=== PATIENT | female | born 1955 ===

== ENCOUNTER 2016-09-15 00:21 | Inpatient (IN) | payer OTHER ==
[2016-09-15] MEDS ORDERED: Sodium Chloride 0.9% 1,000 ML IV STA (01:16)
--- NOTE | 2016-09-15 01:19 | ED PDOC ---
HPI: Chest Pain Time Seen by Provider: 09/15/16 00:39 Chief Complaint (Nursing): Chest Pain Chief Complaint (Provider): chest pain History Per: Patient History/Exam Limitations: no limitations Quality: Sharp, Burning Associated Symptoms: Nausea Exacerbating Factors: Movement Alleviating Factors: Rest Additional Complaint(s): 61yo F in Ed for casey of chest pain with hx of HTN, DM, and hyperthyroidism, complaining of acute epigastric pain radiating to back with associated SOB, nausea and mild left sided CP. denies hcx of similar. states she had ofee and ate, afterwich she noted heyr symptoms. states that it began with elevated BP. Past Medical History Reviewed: Historical Data, Nursing Documentation, Vital Signs Vital Signs: Last Vital Signs Temp 98.3 F 09/15/16 00:34 Pulse 84 09/15/16 00:34 Resp 16 09/15/16 00:34 BP 155/106 H 09/15/16 00:34 Pulse Ox 100 09/15/16 01:22 - Medical History PMH: Diabetes, HTN - Family History Family History: States: No Known Family Hx - Home Medications Home Medications: Ambulatory Orders Medication Instructions Recorded Levothyroxine [Synthroid] 75 mcg PO DAILY 09/15/16 Metformin HCl [Fortamet] 500 mg PO DAILY 09/15/16 Telmisartan [Micardis] 40 mg PO DAILY 09/15/16 - Allergies Allergies/Adverse Reactions: Allergies Allergy/AdvReac Type Severity Reaction Status Date / Time No Known Allergies Allergy Verified 09/15/16 00:43 JAROCHO Risk Score for UA/NSTEMI - JAROCHO Risk Score Age > 64: NO 3 or more CAD Risk Factors: YES Known CAD (Stenosis greater than 50%): NO Aspirin use in past 7 days: NO Severe Angina: NO EKG ST changes greater than 0.5mm: YES JAROCHO Score: 2 Risk %: 8% Curb-65 Severity Score - CURB-65 Severity Score Confusion: No Bun >19mg/dl (>7mmol/L): No Respiratory Rate greater than/equal to 30: No Systolic BP <90 or Diastolic BP less than/equal 60mmHg: No Age >64: No Curb-65 Score: 0 Percentage 30-day mortality: 0.6% Wells Criteria for PE - Wells Criteria for Pulmonary Embolism Clinical Signs and Symptoms of DVT: No P.E is #1 Diagnosis, or Equally Likely: No Heart Rate >100: No Immobilization at least 3 days;Surgery previous 4 weeks: No Previous, objectively diagnosed PE or DVT: No Hemoptysis: No Malignancy w/treatment within 6 months, or palliative: No Total Score: 0 Review of Systems ROS Statement: Except As Marked, All Systems Reviewed And Found Negative Cardiovascular: Positive for: Chest Pain Gastrointestinal: Positive for: Nausea, Vomiting, Abdominal Pain Physical Exam - Reviewed Nursing Documentation Reviewed: Yes Vital Signs Reviewed: Yes - Physical Exam Appears: Positive for: Non-toxic, No Acute Distress, Uncomfortable Head Exam: Positive for: ATRAUMATIC, NORMAL INSPECTION, NORMOCEPHALIC Skin: Positive for: Normal Color, Warm, DRY ENT: Positive for: Normal ENT Inspection Neck: Positive for: Normal, Painless ROM Cardiovascular/Chest: Positive for: Regular Rate, Rhythm Respiratory: Positive for: CNT, Normal Breath Sounds Gastrointestinal/Abdominal: Positive for: Bowel Sounds, Soft, Tenderness ( epigastric pain and LUQ pain) Back: Positive for: Normal Inspection Extremity: Positive for: Normal ROM Neurologic/Psych: Positive for: Alert, Oriented - Laboratory Results Result Diagrams: 09/15/16 01:33 09/15/16 01:33 - ECG ECG Rhythm: Positive for: Normal QRS, Sinus Rhythm, ST/T Changes O2 Sat by Pulse Oximetry: 100 - Progress ED Course And Treament: Pt will get chest pain work up via EKG, trop/PT/PTT/cbc/CMP Medical Decision Making Medical Decision Making: Pt with unremarkable labs however, due to HTN in ED, Chest pain, epaigstric pain in a 61yo F with hx of HTN, DM and hyperthyroidism will need further testing and admitted for chest pain observation. Disposition - Clinical Impression Clinical Impression: Chest pain, Hypertension - Patient ED Disposition Is Patient to be Admitted: Yes - Disposition Disposition Time: 02:17 Condition: FAIR - Pt Status Changed To: Hospital Disposition Of: Observation - POA Present On Arrival: None
[2016-09-15 01:37] LABS: BASO # 0.1 K/uL (0.0-0.2); BASO % 0.8 % (0.0-2.0); EOS # 0.1 K/uL (0.0-0.7); EOS % 1.4 % (0.0-4.0); HEMATOCRIT 39.2 % (34.0-47.0); LYMPH # 3.6 K/uL (1.0-4.3); MEAN CELL VOLUME 91.1 fl (81.0-99.0); MEAN CORPUSCULAR HEMOGLOBIN 30.7 pg (27.0-31.0); MEAN CORPUSCULAR HGB CONC 33.7 g/dL (33.0-37.0); MEAN PLATELET VOLUME 7.5 fl (7.2-11.7); MONO # 0.8 K/uL (0.0-0.8); MONO % 8.4 % (0.0-10.0); NEUT # 4.8 K/uL (1.8-7.0); NEUT % 51.4 % (50.0-75.0); RED CELL DISTRIBUTION WIDTH 13.1 % (11.5-14.5); WHITE BLOOD COUNT 9.4 K/uL (4.8-10.8)
[2016-09-15 01:45] LABS: ALB/GLOB RATIO 1.1 (1.0-2.1); ALKALINE PHOSPHATASE 101 U/L (38-126); ALT/SGPT 50 U/L (9-52); AST/SGOT 31 U/L (14-36); BILIRUBIN,TOTAL 0.3 mg/dl (0.2-1.3); BLOOD UREA NITROGEN 16 mg/dl (7-17); CALCIUM 9.7 mg/dL (8.4-10.2); CARBON DIOXIDE 24 mmol/L (22-30); CHLORIDE 101 mmol/L (98-107); GFR AFRICAN-AMERICAN > 60; GLUCOSE,RANDOM 107 mg/dL (65-105); LIPASE 226 U/L (23-300); MAGNESIUM 1.7 MG/DL (1.6-2.3); POTASSIUM 4.1 MMOL/L (3.6-5.0); SODIUM 137 mmol/l (132-148); TOTAL PROTEIN 8.5 G/DL (6.3-8.2)
[2016-09-15 01:56] LABS: PARTIAL THROMBOPLASTIN TIME 30.7 Seconds (25.6-37.1)
[2016-09-15 02:02] LABS: RBC URINE 3 /hpf (0-3); URINE BILIRUBIN NEGATIVE (NEGATIVE); URINE BLOOD MODERATE (NEGATIVE); URINE COLOR COLORLESS (YELLOW); URINE GLUCOSE (UA) NEG (Normal); URINE KETONE NEGATIVE (NEGATIVE); URINE LEUKOCYTE ESTERASE NEG Leu/uL (Negative); URINE PROTEIN NEGATIVE (NEGATIVE); URINE UROBILINOGEN 0.2-1.0 mg/dL (0.2-1.0); WBC URINE < 1 /hpf (0-5)
--- NOTE | 2016-09-15 02:21 | CP.PCM.HP ---
History of Present Illness - History of Present Illness History of Present Illness: PCP: None Chief Complaint: Paresthesias/Chest Pain HPI: 61 years German speaking female with hx of DM II, HTN, Hypothyroidism comes to the ED referring sensation of crawling of ants on both lower extremities and the whole body. This was associated with nausea SOB and an epigastric pain radiating to the left chest, back and LLQ. Her blood pressure was found to be elevated at her home and because of the this she came to the ED. PMH: HTN; DM II; Hypothyroidism ;Nephrolithiasis; Irritable colon; Fatty liver PSH: left nephrectomy; 3 Cesarian section SH; No cigarette smoking; No Alcohol; no illegal drug use; Live with daughter FH: No hereditory disease Allergies: NKDA Present on Admission - Present on Admission Any Indicators Present on Admission: No History of DVT/PE: No History of Uncontrolled Diabetes: No Urinary Catheter: No Decubitus Ulcer Present: No Review of Systems - Constitutional Constitutional: absent: Anorexia, Chills, Fatigue, Fever, Headache - EENT Eyes: absent: Diplopia, Floaters, Requires Corrective Lenses, Sees Flashes Ears: absent: Decreased Hearing, Ear Discharge, Ear Pain, Tinnitus Nose/Mouth/Throat: absent: Epistaxis, Nasal Congestion, Sinus Pain, Sinus Pressure - Cardiovascular Cardiovascular: Dyspnea. absent: Chest Pain, Edema, Orthopnea, Palpitations - Respiratory Respiratory: Dyspnea. absent: Cough, Wheezing, Stridor, Chest Congestion - Gastrointestinal Gastrointestinal: Nausea. absent: Constipation, Diarrhea, Vomiting - Genitourinary Genitourinary: absent: Dysuria, Flank Pain, Hematuria, Urinary Frequency - Musculoskeletal Musculoskeletal: absent: Myalgias - Integumentary Integumentary: absent: Pruritus, Rash, Skin Ulcer, Sores, Striae, Swelling - Neurological Neurological: Paresthesias. absent: Confusion, Numbness, Headaches, Weakness - Psychiatric Psychiatric: Anxiety. absent: Confusion, Depression, Panic Attacks - Endocrine Endocrine: absent: Palpitations, Polydipsia, Polyphagia, Polyuria - Hematologic/Lymphatic Hematologic: absent: Easy Bleeding, Easy Bruising Past Patient History - Past Medical History & Family History Past Medical History?: Yes - Past Social History Smoking Status: Never Smoked Chewing Tobacco Use: No Cigar Use: No Alcohol: None Home Situation {Lives}: With Family - CARDIAC Hx Hypertension: Yes - PULMONARY Hx Emphysema: No - NEUROLOGICAL Hx Neurological Disorder: No - RENAL Hx Kidney Stones: Yes - ENDOCRINE/METABOLIC Hx Diabetes Mellitus Type 2: Yes Hx Hypothyroidism: Yes - HEMATOLOGICAL/ONCOLOGICAL Hx Blood Disorders: No - INTEGUMENTARY Hx Dermatological Problems: No - MUSCULOSKELETAL/RHEUMATOLOGICAL Hx Musculoskeletal Disorders: No - GASTROINTESTINAL Hx Gastrointestinal Disorders: No - GENITOURINARY/GYNECOLOGICAL Hx Genitourinary Disorders: No - PSYCHIATRIC Hx Psychophysiologic Disorder: No Hx Substance Use: No Other/Comment: Left nephrectomy - SURGICAL HISTORY Hx Surgeries: Yes Hx Abdominal Aortic Aneurysm Repair: No Meds Allergies/Adverse Reactions: Allergies Allergy/AdvReac Type Severity Reaction Status Date / Time No Known Allergies Allergy Verified 09/15/16 00:43 Physical Exam - Constitutional Appears: No Acute Distress - Head Exam Head Exam: ATRAUMATIC, NORMAL INSPECTION, NORMOCEPHALIC - Eye Exam Eye Exam: EOMI, Normal appearance Pupil Exam: NORMAL ACCOMODATION, PERRL - ENT Exam ENT Exam: Mucous Membranes Moist, Normal Exam, Normal External Ear Exam, Normal Oropharynx - Neck Exam Neck exam: Positive for: Full Rom, Normal Inspection. Negative for: Lymphadenopathy, Tenderness - Respiratory Exam Respiratory Exam: Clear to Auscultation Bilateral, NORMAL BREATHING PATTERN. absent: Rales, Rhonchi, Wheezes - Cardiovascular Exam Cardiovascular Exam: REGULAR RHYTHM, RRR, +S1, +S2. absent: Gallop, JVD - GI/Abdominal Exam GI & Abdominal Exam: Normal Bowel Sounds, Soft, Tenderness. absent: Organomegaly Additional comments: Epigastric pains, no guarding, no rebound tenderness - Rectal Exam Rectal Exam: Deferred - Extremities Exam Extremities exam: Positive for: full ROM, normal inspection. Negative for: calf tenderness, pedal edema - Back Exam Back exam: NORMAL INSPECTION. absent: CVA tenderness (L), CVA tenderness (R) - Neurological Exam Neurological exam: Alert, CN II-XII Intact, Oriented x3, Reflexes Normal - Psychiatric Exam Psychiatric exam: Normal Affect, Normal Mood - Skin Skin Exam: Dry, Intact, Normal Color, Warm Results - Vital Signs Recent Vital Signs: Last Vital Signs Temp 98.3 F 09/15/16 00:34 Pulse 84 09/15/16 00:34 Resp 16 09/15/16 00:34 BP 155/106 H 09/15/16 00:34 Pulse Ox 100 09/15/16 02:17 - Labs Result Diagrams: 09/15/16 01:33 09/15/16 01:33 Labs: Laboratory Results - last 24 hr 09/15/16 09/15/16 09/15/16 01:33 01:33 01:33 WBC 9.4 RBC 4.31 Hgb 13.2 Hct 39.2 MCV 91.1 MCH 30.7 MCHC 33.7 RDW 13.1 Plt Count 294 MPV 7.5 Neut % (Auto) 51.4 Lymph % (Auto) 38.0 Geary % (Auto) 8.4 Eos % (Auto) 1.4 Baso % (Auto) 0.8 Neut # 4.8 Lymph # 3.6 Geary # 0.8 Eos # 0.1 Baso # 0.1 PT 10.5 INR 0.9 APTT 30.7 D-Dimer, Quantitative 276 H Sodium 137 Potassium 4.1 Chloride 101 Carbon Dioxide 24 Anion Gap 17 BUN 16 Creatinine 0.9 Est GFR ( Amer) > 60 Est GFR (Non-Af Amer) > 60 Random Glucose 107 H Calcium 9.7 Magnesium 1.7 Total Bilirubin 0.3 AST 31 ALT 50 Alkaline Phosphatase 101 Troponin I < 0.0120 NT-Pro-B Natriuret Pep 71.0 Total Protein 8.5 H Albumin 4.5 Globulin 4.0 H Albumin/Globulin Ratio 1.1 Lipase 226 Urine Color Urine Clarity Urine pH Ur Specific Emmett Urine Protein Urine Glucose (UA) Urine Ketones Urine Blood Urine Nitrate Urine Bilirubin Urine Urobilinogen Ur Leukocyte Esterase Urine RBC (Auto) Urine Microscopic WBC 09/15/16 01:55 WBC RBC Hgb Hct MCV MCH MCHC RDW Plt Count MPV Neut % (Auto) Lymph % (Auto) Geary % (Auto) Eos % (Auto) Baso % (Auto) Neut # Lymph # Geary # Eos # Baso # PT INR APTT D-Dimer, Quantitative Sodium Potassium Chloride Carbon Dioxide Anion Gap BUN Creatinine Est GFR ( Amer) Est GFR (Non-Af Amer) Random Glucose Calcium Magnesium Total Bilirubin AST ALT Alkaline Phosphatase Troponin I NT-Pro-B Natriuret Pep Total Protein Albumin Globulin Albumin/Globulin Ratio Lipase Urine Color Colorless Urine Clarity Clear Urine pH 7.0 Ur Specific Emmett < 1.005 Urine Protein Negative Urine Glucose (UA) Neg Urine Ketones Negative Urine Blood Moderate Urine Nitrate Negative Urine Bilirubin Negative Urine Urobilinogen 0.2-1.0 Ur Leukocyte Esterase Neg Urine RBC (Auto) 3 Urine Microscopic WBC < 1 - Imaging and Cardiology Chest x-ray Status: Image reviewed by me Additional comment: No infiltrate CT scan - abdomen Status: Report reviewed by me Additional comment: FINDINGS: Liver: The liver is of normal size measuring 13.0 cm with no focal defects. There is slightly increased echogenicity. There is hepatopetal portal flow. No intrahepatic bile duct dilation. Gallbladder: The gallbladder demonstrates slight wall thickening measuring 3-4 mm. There is an internal gallstone which is mobile measuring 6 x 6 x 3 mm. There is a positive sono Mcdowell's sign. Common bile duct: The CBD measures 5 mm. No stones. No dilation. Pancreas: The pancreas is not seen. Right kidney: The right kidney is normal measuring 11.0 cm. No stones. No hydronephrosis. Aorta: The proximal aorta appears normal. The mid aorta is not seen. Inferior vena cava: The IVC is patent. IMPRESSION: 1. Cholelithiasis. A small mobile gallstone is noted. There is slight wall thickening measuring 3-4 mm and a positive sono Mcdowell's sign which may reflect cholecystitis. 2. Fatty infiltration of the liver. 3. Otherwise negative right upper quadrant sonogram. The pancreas is not seen. Assessment & Plan - Assessment and Plan (Free Text) Assessment: #. Cholelithiasis r/o Cholecystitis #. Chest Pain #. HTN #. DM II #. Hypothyroidism #. Fatty infiltrate of the liver Plan: 61 years German speaking female with hx of DM II, HTN, Hypothyroidism comes to the ED referring sensation of crawling of ants on both lower extremities and the whole body. This was associated with nausea SOB and an epigastric pain radiating to the left chest, back and LLQ. Her blood pressure was found to be elevated at her home and because of the this she came to the ED. #. Cholelithiasis r/o Cholecystitis - Consult surgery Dr Jones - Emmanuelle jha - NPO - IV Fluids -Pain management with Morphine - Unasyn #. Chest Pain - Follow Serial troponin - serial EKG #. HTN - Micardis - Follow Blood Pressures #. DM II - Lispro sliding scale with accucheck A6H #. Hypothyroidism - Levothyroxin #. Stress ulcer prophylaxis with Pepcid #. DVT Prophylaxis with SCD #. Code Status: Full - Date & Time Date: 09/15/16 Time: 02:20
[2016-09-15] MEDS: Levothyroxine 75 MCG TAB PO SCH (06:37)
[2016-09-15] MEDS: Sodium Chloride 0.9% 1,000 ML IV SCH ×2 (06:38→16:47)
[2016-09-15] MEDS ORDERED: Insulin Lispro (humaLOG) 100 Units/ml Inj SC SCH (07:30)
[2016-09-15 08:53] LABS: TROPONIN I 0.017 ng/mL (0.00-0.120)
[2016-09-15] MEDS ORDERED: Enoxaparin 40 mg Syringe SC SCH (09:00)
[2016-09-15] MEDS: Ampicillin/Sulbactam 3 GM in Sodium Chloride 0.9% 100 ML IVPB SCH ×3 (09:11→21:42)
[2016-09-15] MEDS ORDERED: Iohexol 240 (10 ml) PO ONE (10:37)
[2016-09-15] MEDS ORDERED: Iohexol 240 (50 ml) PO ONE (10:41)
--- NOTE | 2016-09-15 11:18 | CP.PCM.CON ---
History of Present Illness - History of Present Illness History of Present Illness: General Surgery consult note for Dr. Jones Consulted for: Abdominal pain Patient is a 61 y/o F with PMH including DM, hypothyroidism, irritable colon, and nephrolithiasis and PSH of L nephrectomy and x3 who presented to the ER with lower chest pain and abdominal pain and nausea that started last night. The pain is in the epigastrium, LUQ, and LLQ. Chest pain is just superior to the epigastrium and does not radiate to her arms or jaw. Patient also complains of a sensation that ants were crawling on her lower extremities, Patient denies any vomiting, fevers, diarrhea, or SOB. Patient states that she has had abdominal pain several times and that it has been ascribed to colitis in the past. Last bowel movement was yesterday AM and was normal. Last colonoscopy was 3-5 years ago and patient does not recall the results. Patient states that this AM her pain is much improved and her nausea and crawling sensation have resolved. Patient underwent an abdominal US which revealed a gall stone, gall bladder 3.5mm wall thickness, CBD 5mm, and positive sonographic kruse's WBC: wnl LFT's: wnl PMH: HTN, DM, hypothyroidism, nephrolithiasis, irritable colon, fatty liver PSH: L nephrectomy, x3 ALL: NKDA Review of Systems - Review of Systems All systems: reviewed and no additional remarkable complaints except (as per HPI ) - Constitutional Constitutional: absent: Chills, Fever, Weakness - Cardiovascular Cardiovascular: Chest Pain, Chest Pain at Rest. absent: Dyspnea, Pain Radiating to Arm/Neck/Jaw - Respiratory Respiratory: absent: Cough, Dyspnea - Gastrointestinal Gastrointestinal: Abdominal Pain, Constipation, Nausea. absent: Diarrhea, Vomiting - Musculoskeletal Musculoskeletal: absent: Arthralgias, Back Pain, Neck Pain - Neurological Neurological: absent: Frequent Falls, Headaches, Weakness Past Patient History - Past Medical History & Family History Past Medical History?: Yes - Past Social History Smoking Status: Never Smoked Chewing Tobacco Use: No Cigar Use: No Alcohol: None Home Situation {Lives}: With Family - CARDIAC Hx Hypertension: Yes - PULMONARY Hx Emphysema: No - NEUROLOGICAL Hx Neurological Disorder: No - RENAL Hx Kidney Stones: Yes - ENDOCRINE/METABOLIC Hx Diabetes Mellitus Type 2: Yes Hx Hypothyroidism: Yes - HEMATOLOGICAL/ONCOLOGICAL Hx Blood Disorders: No - INTEGUMENTARY Hx Dermatological Problems: No - MUSCULOSKELETAL/RHEUMATOLOGICAL Hx Musculoskeletal Disorders: No - GASTROINTESTINAL Hx Gastrointestinal Disorders: No - GENITOURINARY/GYNECOLOGICAL Hx Genitourinary Disorders: No - PSYCHIATRIC Hx Psychophysiologic Disorder: No Hx Substance Use: No Other/Comment: Left nephrectomy - SURGICAL HISTORY Hx Surgeries: Yes Hx Abdominal Aortic Aneurysm Repair: No Meds Allergies/Adverse Reactions: Allergies Allergy/AdvReac Type Severity Reaction Status Date / Time No Known Allergies Allergy Verified 09/15/16 00:43 - Medications Medications: Current Medications Famotidine (Pepcid) 20 mg PO DAILY [facility] Sodium Chloride (Sodium Chloride 0.9%) 1,000 mls @ 100 mls/hr IV .Q10H [facility] Stop: 09/16/16 06:17 Last Admin: 09/15/16 06:38 Dose: 100 mls/hr Ampicillin Sodium/Sulbactam (Sodium 3 gm/ Sodium Chloride) 100 mls @ 100 mls/ hr IVPB Q6 [facility] Last Admin: 09/15/16 09:11 Dose: 100 mls/hr Levothyroxine Sodium (Synthroid) 75 mcg PO DAILY@0630 [facility] Last Admin: 09/15/16 06:37 Dose: 75 mcg Losartan Potassium (Cozaar) 50 mg PO DAILY [facility] Last Admin: 09/15/16 08:52 Dose: 50 mg Morphine Sulfate (Morphine) 1 mg IVP Q4 PRN PRN Reason: Pain, moderate (4-7) Morphine Sulfate (Morphine) 2 mg IVP Q4 PRN PRN Reason: Pain, severe (8-10) Ondansetron HCl (Zofran Inj) 4 mg IVP Q4 PRN PRN Reason: Nausea/Vomiting Physical Exam - Constitutional Appears: Well, Non-toxic, No Acute Distress - Head Exam Head Exam: ATRAUMATIC, NORMOCEPHALIC - Eye Exam Eye Exam: Normal appearance. absent: Conjunctival injection, Scleral icterus - ENT Exam ENT Exam: Mucous Membranes Moist, Normal Oropharynx - Respiratory Exam Respiratory Exam: NORMAL BREATHING PATTERN. absent: Accessory Muscle Use, Respiratory Distress - Cardiovascular Exam Cardiovascular Exam: RRR - GI/Abdominal Exam GI & Abdominal Exam: Soft, Tenderness (Moderate tenderness to palpation LUQ> EPIGASTRIUM>LLQ). absent: Distended Additional comments: negative kruse's sign, no rebound tenderness. - Extremities Exam Extremities exam: Positive for: pedal pulses present. Negative for: calf tenderness, pedal edema - Neurological Exam Neurological exam: Alert, Oriented x3 - Psychiatric Exam Psychiatric exam: Normal Affect, Normal Mood - Skin Skin Exam: Dry, Intact, Normal Color, Warm Results - Vital Signs Recent Vital Signs: Last Vital Signs Temp 97.7 F 09/15/16 08:04 Pulse 65 09/15/16 08:52 Resp 20 09/15/16 08:04 BP 151/84 H 09/15/16 08:52 Pulse Ox 100 09/15/16 08:04 - Labs Result Diagrams: 09/15/16 01:33 09/15/16 01:33 Labs: Laboratory Results - last 24 hr 09/15/16 09/15/16 04:34 08:10 POC Glucose (mg/dL) 103 Troponin I 0.0170 Triglycerides 283 H Cholesterol 258 H LDL Cholesterol Direct 140 H HDL Cholesterol 44 Assessment & Plan - Assessment and Plan (Free Text) Assessment: 61F with PMH of DM, hypothyroidism, and colitis with PSH of L nephrectomy and c- section x3 who presents with abdominal pain, nausea, and cholelithiasis Afebrile, VSS Minimal pain in the RUQ this AM Abd US: one gallstone and mild wall thickening in the Gall bladder without pericholecystic fluid or CBD dilation WBC and LFT's wnl Plan: -No immediate surgical intervention at this time. Clinical picture is more likely an enteritis than cholecystitis -CT of abdomen and pelvis with PO contrast -trend CBC/CMP -analgesics, antiemetics -Continue with IV antibiotics -NPO pending results of CT scan -continue management per primary team Examined and discussed with Dr. Robert Hilton, PGY1
--- NOTE | 2016-09-15 11:41 | US ---
HISTORY: epigastric pain COMPARISON: None. TECHNIQUE: Sonographic evaluation of the right upper quadrant of the abdomen. FINDINGS: LIVER: Measures 13.0 cm in length. Hepatopedal blood flow. Fatty infiltration manifest ultrasonographically as increased echogenicity of the liver parenchyma. No mass. No intrahepatic bile duct dilatation. GALLBLADDER: Cholelithiasis. Positive sonographic Mcdowell's sign. COMMON BILE DUCT: Measures 5.2 mm. No stones. No dilatation. PANCREAS: Obscured by overlying bowel gas. Non diagnostic assessment of the pancreas. RIGHT KIDNEY: Measures 5.1 x 11.0 cm in length. Normal echogenicity. No calculus, mass, or hydronephrosis. AORTA: No aneurysmal dilatation. IVC: Unremarkable. OTHER FINDINGS: None . IMPRESSION: Cholelithiasis, positive sonographic Mcdowell sign suggest acute cholecystitis. Concordant results (preliminary interpretation) provided by [employer]. Procedure Completed: 02:10. Preliminary ([facility]) Report: Dictated and Authenticated: 02:28. Final Interpretation: 11:39. September 03, 2016.
--- NOTE | 2016-09-15 12:19 | RAD ---
HISTORY: Chest pain COMPARISON: None available. TECHNIQUE: Chest PA and lateral FINDINGS: LUNGS: No focal consolidation. Please note that chest x-ray has limited sensitivity for the detection of pulmonary masses. PLEURA: No significant pleural effusion identified. No definite pneumothorax . CARDIOVASCULAR: The cardiomediastinal silhouette appears within normal limits of size. OSSEOUS STRUCTURES: No acute osseous abnormality identified. VISUALIZED UPPER ABDOMEN: Unremarkable. OTHER FINDINGS: None. IMPRESSION: No focal consolidation, significant pleural effusion, or definite pneumothorax identified.
--- NOTE | 2016-09-15 13:58 | CT ---
PROCEDURE: CT Abdomen and Pelvis without IV contrast. HISTORY: Abdominal pain COMPARISON: Limited abdominal ultrasound performed 09/15/16 TECHNIQUE: Contiguous axial images of the abdomen and pelvis. Oral contrast was administered. No IV contrast given. Coronal and Sagittal reformats generated and reviewed. Radiation dose: Total exam DLP = 789.66 MGy-cm. This CT exam was performed using one or more of the following dose reduction techniques: Automated exposure control, adjustment of the mA and/or kV according to patient size, and/or use of iterative reconstruction technique. FINDINGS: There is limited evaluation of the solid organs without the administration of IV contrast. LOWER THORAX: No visible consolidation, pleural effusion, or pneumothorax. LIVER: Unremarkable unenhanced appearance. GALLBLADDER AND BILE DUCTS: Punctate gallstone within the gallbladder. PANCREAS: Unremarkable unenhanced appearance. SPLEEN: Unremarkable unenhanced appearance. ADRENALS: Unremarkable unenhanced appearance. KIDNEYS AND URETERS: 3 mm distal right ureteral calculus with mild proximal hydroureteronephrosis. The left kidney is absent. BLADDER: Distended urinary bladder appears otherwise unremarkable. REPRODUCTIVE: Uterus is present. APPENDIX: The appendix appears within normal limits of caliber. No secondary signs of acute appendicitis. BOWEL: The stomach is nondistended. The bowel loops appear within normal limits of caliber without evidence of intestinal obstruction. Diverticulosis without CT evidence of acute diverticulitis. PERITONEUM: No significant free fluid. No definite free air. LYMPH NODES: No bulky lymphadenopathy identified. VASCULATURE: No aortic aneurysm. BONES: No acute osseous abnormality is detected. OTHER FINDINGS: 10 mm fat containing umbilical hernia. IMPRESSION: 3 mm distal right ureteral calculus with mild proximal hydroureteronephrosis. The left kidney is absent. No surgical clips evident. Correlate clinically for congenital absence versus nephrectomy. Cholelithiasis. Additional findings as above.
--- NOTE | 2016-09-15 15:04 | NM ---
COMPARISON: September 15, 2016. Two-view chest TECHNIQUE: 42.5 mCi technetium 99-m DTPA aerosol. 5.4 mCI technetium 99-m MAA administered intravenously. FINDINGS: VENTILATION COMPONENT: Heterogeneous accumulation of radionuclide in the lungs. Retention of radionuclide centrally in the tracheobronchial tree and ingestion of radionuclide in the stomach. PERFUSION COMPONENT: Heterogeneous distribution of radionuclide. No geographic, segmental, lobar abnormalities apparent on the present examination. IMPRESSION: Mikhail probability ventilation perfusion scan for pulmonary embolism.
[2016-09-15 17:44] LABS: RBC URINE 2 /hpf (0-3); URINE BILIRUBIN NEGATIVE (NEGATIVE); URINE BLOOD MODERATE (NEGATIVE); URINE COLOR STRAW (YELLOW); URINE GLUCOSE (UA) NEG (Normal); URINE KETONE NEGATIVE (NEGATIVE); URINE LEUKOCYTE ESTERASE NEG Leu/uL (Negative); URINE PROTEIN NEGATIVE (NEGATIVE); URINE UROBILINOGEN 0.2-1.0 mg/dL (0.2-1.0); WBC URINE < 1 /hpf (0-5)
[2016-09-16] MEDS: Ampicillin/Sulbactam 3 GM in Sodium Chloride 0.9% 100 ML IVPB SCH ×4 (03:37→21:27)
[2016-09-16] MEDS: Sodium Chloride 0.9% 1,000 ML IV SCH (03:40)
[2016-09-16 07:04] LABS: ALB/GLOB RATIO 1.1 (1.0-2.1); ALKALINE PHOSPHATASE 72 U/L (38-126); ALT/SGPT 38 U/L (9-52); AST/SGOT 37 U/L (14-36); BASO % 0.6 % (0.0-2.0); BILIRUBIN,TOTAL 0.6 mg/dl (0.2-1.3); BLOOD UREA NITROGEN 12 mg/dl (7-17); CALCIUM 9.3 mg/dL (8.4-10.2); CARBON DIOXIDE 23 mmol/L (22-30); CHLORIDE 111 mmol/L (98-107); EOS # 0.2 K/uL (0.0-0.7); EOS % 2.1 % (0.0-4.0); GFR AFRICAN-AMERICAN > 60; GLUCOSE,RANDOM 89 mg/dL (65-105); HEMATOCRIT 37.1 % (34.0-47.0); LYMPH # 2.9 K/uL (1.0-4.3); LYMPH % 36.9 % (20.0-40.0); MEAN CELL VOLUME 90.7 fl (81.0-99.0); MEAN CORPUSCULAR HEMOGLOBIN 30.7 pg (27.0-31.0); MEAN CORPUSCULAR HGB CONC 33.9 g/dL (33.0-37.0); MEAN PLATELET VOLUME 7.8 fl (7.2-11.7); MONO # 0.7 K/uL (0.0-0.8); MONO % 8.4 % (0.0-10.0); NEUT # 4.1 K/uL (1.8-7.0); NRBC % 0.1 % (0.0-0.0); RED CELL DISTRIBUTION WIDTH 13.2 % (11.5-14.5); SODIUM 142 mmol/l (132-148); TOTAL PROTEIN 7.2 G/DL (6.3-8.2); WHITE BLOOD COUNT 7.9 K/uL (4.8-10.8)
[2016-09-16] MEDS: Levothyroxine 75 MCG TAB PO SCH (08:00)
--- NOTE | 2016-09-16 11:10 | CARD ---
APPROVED REPORT EXAM: Two-dimensional and M-mode echocardiogram with Doppler and color Doppler. Other Information Quality : GoodRhythm : NSR INDICATION Pre-Op Chest Pain 2D DIMENSIONS IVSd0.98 (0.7-1.1cm)LVDd3.86 (3.9-5.9cm) LVOT Diameter1.79 (1.8-2.4cm)PWd0.94 (0.7-1.1cm) IVSs1.04 (0.8-1.2cm)LVDs2.17 (2.5-4.0cm) FS (%) 43.7 %PWs1.00 (0.8-1.2cm) M-Mode DIMENSIONS Left Atrium (MM)3.04 (2.5-4.0cm)IVSd1.13 (0.7-1.1cm) Aortic Root2.86 (2.2-3.7cm)LVDd3.78 (4.0-5.6cm) Aortic Cusp Exc.1.75 (1.5-2.0cm)PWd1.00 (0.7-1.1cm) IVSs1.75 cmFS (%) 52 % LVDs1.83 (2.0-3.8cm)PWs1.83 cm Mitral Valve MV E Nrpfpqjf19.0cm/sMV DECEL [id number] A Jpoyshli13.7cm/s MV [id number]/A ratio1.3MVA (PHT)4.16cm2 TDI Lateral E' Peak V9.45cm/sMedial E' Peak V8.72cm/sE/Lateral E'9.2 E/Medial E'10.0 LEFT VENTRICLE The left ventricle is normal size. There is normal left ventricular wall thickness. The left ventricular function is normal. The left ventricular ejection fraction is 60-65% There is normal LV segmental wall motion. The left ventricular diastolic function is normal. No left ventricle thrombus noted on this study. There is no ventricular septal defect visualized. There is no left ventricular aneurysm. There is no mass noted in the left ventricle. RIGHT VENTRICLE The right ventricle is normal size. There is normal right ventricular wall thickness. The right ventricular systolic function is normal. ATRIA The left atrium size is normal. The right atrium size is normal. The interatrial septum is intact with no evidence for an atrial septal defect. AORTIC VALVE The aortic valve is normal in structure and function. No aortic regurgitation is present. There is no aortic valvular stenosis. There is no aortic valvular vegetation. MITRAL VALVE The mitral valve is normal in structure and function. There is no evidence of mitral valve prolapse. There is no mitral valve stenosis. There is no mitral valve regurgitation noted. TRICUSPID VALVE The tricuspid valve is normal in structure and function. There is no tricuspid valve regurgitation noted. There is no tricuspid valve prolapse or vegetation. There is no tricuspid valve stenosis. PULMONIC VALVE The pulmonary valve is normal in structure and function. There is no pulmonic valvular regurgitation. There is no pulmonic valvular stenosis. GREAT VESSELS The aortic root is normal in size. The ascending aorta is normal in size. The IVC is normal in size and collapses >50% with inspiration. PERICARDIAL EFFUSION The pericardium appears normal. There is no pleural effusion. <Conclusion> Normal Echocardiogram
--- NOTE | 2016-09-16 11:46 | CARD ---
APPROVED REPORT EKG Measurement Heart [id number] <Conclusion> Normal sinus rhythm Nonspecific ST abnormality Abnormal ECG
--- NOTE | 2016-09-16 16:34 | CP.PCM.CON ---
History of Present Illness - History of Present Illness History of Present Illness: urology Called to see this 61 yr female with solitary kidney and van obstructing 3mm distal ureteral calc with hydronephrosis. Admitted for abdominal pain and this finding seen on CT scan. Spoke with attending and will schedule for stone manipulation in am if pt does not pass it spontaneously Past Patient History - Past Medical History & Family History Past Medical History?: Yes - Past Social History Smoking Status: Never Smoked Chewing Tobacco Use: No Cigar Use: No Alcohol: None Home Situation {Lives}: With Family - CARDIAC Hx Hypertension: Yes - PULMONARY Hx Emphysema: No - NEUROLOGICAL Hx Neurological Disorder: No - RENAL Hx Kidney Stones: Yes - ENDOCRINE/METABOLIC Hx Diabetes Mellitus Type 2: Yes Hx Hypothyroidism: Yes - HEMATOLOGICAL/ONCOLOGICAL Hx Blood Disorders: No - INTEGUMENTARY Hx Dermatological Problems: No - MUSCULOSKELETAL/RHEUMATOLOGICAL Hx Musculoskeletal Disorders: No - GASTROINTESTINAL Hx Gastrointestinal Disorders: No - GENITOURINARY/GYNECOLOGICAL Hx Genitourinary Disorders: No - PSYCHIATRIC Hx Psychophysiologic Disorder: No Hx Substance Use: No Other/Comment: Left nephrectomy - SURGICAL HISTORY Hx Surgeries: Yes Hx Abdominal Aortic Aneurysm Repair: No Meds Allergies/Adverse Reactions: Allergies Allergy/AdvReac Type Severity Reaction Status Date / Time No Known Allergies Allergy Verified 09/15/16 00:43 - Medications Medications: Current Medications Atorvastatin Calcium (Lipitor) 20 mg PO HS [facility] Last Admin: 09/15/16 21:43 Dose: 20 mg Famotidine (Pepcid) 20 mg PO DAILY [facility] Last Admin: 09/16/16 09:01 Dose: 20 mg Ampicillin Sodium/Sulbactam (Sodium 3 gm/ Sodium Chloride) 100 mls @ 100 mls/ hr IVPB Q6 [facility] Last Admin: 09/16/16 09:00 Dose: 100 mls/hr Levothyroxine Sodium (Synthroid) 75 mcg PO DAILY@0630 [facility] Last Admin: 09/16/16 08:00 Dose: 75 mcg Losartan Potassium (Cozaar) 50 mg PO DAILY [facility] Last Admin: 09/16/16 08:54 Dose: 50 mg Morphine Sulfate (Morphine) 1 mg IVP Q4 PRN PRN Reason: Pain, moderate (4-7) Morphine Sulfate (Morphine) 2 mg IVP Q4 PRN PRN Reason: Pain, severe (8-10) Ondansetron HCl (Zofran Inj) 4 mg IVP Q4 PRN PRN Reason: Nausea/Vomiting Tamsulosin HCl (Flomax) 0.4 mg PO DAILY [facility] Last Admin: 09/16/16 08:55 Dose: 0.4 mg Results - Vital Signs Recent Vital Signs: Last Vital Signs Temp 97.7 F 09/16/16 15:37 Pulse 79 09/16/16 15:37 Resp 18 09/16/16 15:37 BP 138/78 09/16/16 15:37 Pulse Ox 98 09/16/16 15:37 - Labs Result Diagrams: 09/16/16 05:00 09/16/16 05:00 Labs: Laboratory Results - last 24 hr 09/15/16 09/15/16 09/15/16 16:14 16:15 17:26 WBC RBC Hgb Hct MCV MCH MCHC RDW Plt Count MPV Neut % (Auto) Lymph % (Auto) Hart[place] % (Auto) Eos % (Auto) Baso % (Auto) Neut # Lymph # Hartley # Eos # Baso # Sodium Potassium Chloride Carbon Dioxide Anion Gap BUN Creatinine Est GFR ( Amer) Est GFR (Non-Af Amer) POC Glucose (mg/dL) 93 Random Glucose Calcium Total Bilirubin AST ALT Alkaline Phosphatase Troponin I 0.0150 Total Protein Albumin Globulin Albumin/Globulin Ratio Urine Color Straw Urine Clarity Clear Urine pH 6.0 Ur Specific [place] 1.006 Urine Protein Negative Urine Glucose (UA) Neg Urine Ketones Negative Urine Blood Moderate Urine Nitrate Negative Urine Bilirubin Negative Urine Urobilinogen 0.2-1.0 Ur Leukocyte Esterase Neg Urine RBC (Auto) 2 Urine Microscopic WBC < 1 Ur Squamous Epith Cells < 1 09/15/16 09/16/16 09/16/16 21:46 05:00 05:00 WBC 7.9 RBC 4.09 Hgb 12.6 Hct 37.1 MCV 90.7 MCH 30.7 MCHC 33.9 RDW 13.2 Plt Count 293 MPV 7.8 Neut % (Auto) 52.0 Lymph % (Auto) 36.9 Hartley % (Auto) 8.4 Eos % (Auto) 2.1 Baso % (Auto) 0.6 Neut # 4.1 Lymph # 2.9 Hartley # 0.7 Eos # 0.2 Baso # 0.0 Sodium 142 Potassium 4.0 Chloride 111 H Carbon Dioxide 23 Anion Gap 12 BUN 12 Creatinine 0.9 Est GFR ( Amer) > 60 Est GFR (Non-Af Amer) > 60 POC Glucose (mg/dL) 111 H Random Glucose 89 Calcium 9.3 Total Bilirubin 0.6 AST 37 H ALT 38 Alkaline Phosphatase 72 Troponin I Total Protein 7.2 Albumin 3.8 Globulin 3.4 Albumin/Globulin Ratio 1.1 Urine Color Urine Clarity Urine pH Ur Specific [place] Urine Protein Urine Glucose (UA) Urine Ketones Urine Blood Urine Nitrate Urine Bilirubin Urine Urobilinogen Ur Leukocyte Esterase Urine RBC (Auto) Urine Microscopic WBC Ur Squamous Epith Cells 09/16/16 09/16/16 05:22 10:55 WBC RBC Hgb Hct MCV MCH MCHC RDW Plt Count MPV Neut % (Auto) Lymph % (Auto) Hart[place] % (Auto) Eos % (Auto) Baso % (Auto) Neut # Lymph # Hartley # Eos # Baso # Sodium Potassium Chloride Carbon Dioxide Anion Gap BUN Creatinine Est GFR ( Amer) Est GFR (Non-Af Amer) POC Glucose (mg/dL) 104 147 H Random Glucose Calcium Total Bilirubin AST ALT Alkaline Phosphatase Troponin I Total Protein Albumin Globulin Albumin/Globulin Ratio Urine Color Urine Clarity Urine pH Ur Specific [place] Urine Protein Urine Glucose (UA) Urine Ketones Urine Blood Urine Nitrate Urine Bilirubin Urine Urobilinogen Ur Leukocyte Esterase Urine RBC (Auto) Urine Microscopic WBC Ur Squamous Epith Cells
--- NOTE | 2016-09-16 17:03 | CP.PCM.PN ---
Subjective - Date & Time of Evaluation Date of Evaluation: 09/16/16 Time of Evaluation: 11:00 - Subjective Subjective: Patient seen and evaluated bedside. Feeling better. With minimal discomfort to right flank radiating to the groin. Hemodynamically stable, afebrile. No acute issues overnight. Straining urine but no stone collected so far .Denies any dysuria , fever, chills, hematuria, nausea or vomiting. Objective - Vital Signs/Intake and Output Vital Signs (last 24 hours): Temp Pulse Resp BP Pulse Ox 97.7 F 79 18 138/78 98 09/16/16 15:37 09/16/16 15:37 09/16/16 15:37 09/16/16 15:37 09/16/16 15:37 - Medications Medications: Current Medications Atorvastatin Calcium (Lipitor) 20 mg PO HS [facility] Last Admin: 09/15/16 21:43 Dose: 20 mg Famotidine (Pepcid) 20 mg PO DAILY [facility] Last Admin: 09/16/16 09:01 Dose: 20 mg Ampicillin Sodium/Sulbactam (Sodium 3 gm/ Sodium Chloride) 100 mls @ 100 mls/ hr IVPB Q6 [facility] Last Admin: 09/16/16 16:32 Dose: 100 mls/hr Levothyroxine Sodium (Synthroid) 75 mcg PO DAILY@0630 [facility] Last Admin: 09/16/16 08:00 Dose: 75 mcg Losartan Potassium (Cozaar) 50 mg PO DAILY [facility] Last Admin: 09/16/16 08:54 Dose: 50 mg Morphine Sulfate (Morphine) 1 mg IVP Q4 PRN PRN Reason: Pain, moderate (4-7) Morphine Sulfate (Morphine) 2 mg IVP Q4 PRN PRN Reason: Pain, severe (8-10) Ondansetron HCl (Zofran Inj) 4 mg IVP Q4 PRN PRN Reason: Nausea/Vomiting Tamsulosin HCl (Flomax) 0.4 mg PO DAILY [facility] Last Admin: 09/16/16 08:55 Dose: 0.4 mg - Labs Labs: 09/16/16 05:00 09/16/16 05:00 PT 10.5 Seconds (9.8-13.1) 09/15/16 01:33 INR 0.9 (0.9-1.2) 09/15/16 01:33 APTT 30.7 Seconds (25.6-37.1) 09/15/16 01:33 - Constitutional Appears: Non-toxic, No Acute Distress - Head Exam Head Exam: ATRAUMATIC, NORMAL INSPECTION, NORMOCEPHALIC - Eye Exam Eye Exam: EOMI, Normal appearance, PERRL Pupil Exam: NORMAL ACCOMODATION - ENT Exam ENT Exam: Mucous Membranes Moist, Normal Exam - Neck Exam Neck Exam: Full ROM, Normal Inspection - Respiratory Exam Respiratory Exam: Clear to Ausculation Bilateral, NORMAL BREATHING PATTERN. absent: Rales, Rhonchi, Wheezes - Cardiovascular Exam Cardiovascular Exam: REGULAR RHYTHM, RRR, +S1, +S2. absent: JVD - GI/Abdominal Exam GI & Abdominal Exam: Soft, Normal Bowel Sounds. absent: Distended, Guarding, Tenderness, Rebound - Rectal Exam Rectal Exam: Deferred - Extremities Exam Extremities Exam: Full ROM, Normal Capillary Refill, Normal Inspection. absent : Calf Tenderness, Pedal Edema - Back Exam Back Exam: NORMAL INSPECTION - Neurological Exam Neurological Exam: Alert, Awake, CN II-XII Intact, Oriented x3 - Psychiatric Exam Psychiatric exam: Normal Affect, Normal Mood - Skin Skin Exam: Dry, Intact, Normal Color, Warm Assessment and Plan - Assessment and Plan (Free Text) Assessment: 61 years female with hx of DM II, HTN, Hypothyroidism comes to the ED referring sensation of crawling of ants on both lower extremities and the whole body. This was associated with nausea SOB and an epigastric pain radiating to the left chest, back and LLQ. Her blood pressure was found to be elevated at home and because of the this she came to the ED.Initially admitted to telemetry for chest pain to rule out ACS. Abd Us showed cholelithiasis and general surgery was consulted. CT abdomen shoed right distal ureter 3 mm stone with mild hydronephrosis. Upon further questioning patient gives history of multiple renal stones in the past and left nephrectomy after a complicated procedure for renal colic . At present she is clinically improving . Urology consulted and planning for stent placement if patient is not able to pass the stone 1. Chest Pain- ACS ruled out Serial troponins negative EKG showed no ST-T wave changes V/Q chest showed no PE ( elevated D-dimmer ) transfer to medical floor 2.Cholelithiasis without cholecystitis Abd Us and CT abdomen showed cholelithiasis Surgery consulted no surgical intervention necessary 3. Obstructing right Ureteral stone with mild hydronephrosis Patient has long history of recurrent renal stones Continue IVF, pain management, Flomax urology consulted and case discussed with Dr. Ashton Continue straining of urine for stone colloection On Unasyn empirically Plan for stone removal in AM if patient is not able to pass the stone overnight 4. HTN better controlled Continue cozaar ( micardis not formulary ) 5. DM II controlled Lispro sliding scale with accuchecks hold Metformin for 48 hours since patient received IV contrast diabetic diet 6. Dyslipidemia uncontrolled Chol 258 TG 283 LDL 140 Start Atorvastatin 40 mg po daily 7. Hypothyroidism on Levothyroxin 8. Stress ulcer prophylaxis Pepcid 9. DVT Prophylaxis SCD
[2016-09-17] MEDS: Ampicillin/Sulbactam 3 GM in Sodium Chloride 0.9% 100 ML IVPB SCH (04:32)
[2016-09-17] MEDS: Levothyroxine 75 MCG TAB PO SCH (05:46)
[2016-09-17 06:36] LABS: HEMATOCRIT 35.9 % (34.0-47.0); MEAN CELL VOLUME 90.8 fl (81.0-99.0); MEAN CORPUSCULAR HEMOGLOBIN 30.8 pg (27.0-31.0); MEAN CORPUSCULAR HGB CONC 33.9 g/dL (33.0-37.0); RED CELL DISTRIBUTION WIDTH 13.3 % (11.5-14.5); WHITE BLOOD COUNT 8.5 K/uL (4.8-10.8)
[2016-09-17 06:47] LABS: BLOOD UREA NITROGEN 16 mg/dl (7-17); CALCIUM 9.3 mg/dL (8.4-10.2); CARBON DIOXIDE 25 mmol/L (22-30); CHLORIDE 111 mmol/L (98-107); GFR AFRICAN-AMERICAN > 60; GLUCOSE,RANDOM 99 mg/dL (65-105); SODIUM 144 mmol/l (132-148)
--- NOTE | 2016-09-17 10:39 | CP.PCM.PN ---
Subjective - Date & Time of Evaluation Date of Evaluation: 09/17/16 Time of Evaluation: 10:00 - Subjective Subjective: Patient seen and evaluated bedside.With suprapubic pain. Hemodynamically stable , afebrile For OR today for stent placement Objective - Vital Signs/Intake and Output Vital Signs (last 24 hours): Temp Pulse Resp BP Pulse Ox 98.0 F 80 18 146/87 97 09/17/16 07:32 09/17/16 09:00 09/17/16 07:32 09/17/16 09:13 09/17/16 07:32 - Medications Medications: Current Medications Acetaminophen (Tylenol 325mg Tab) 650 mg PO Q6 PRN PRN Reason: Headache Last Admin: 09/16/16 18:16 Dose: 650 mg Atorvastatin Calcium (Lipitor) 40 mg PO DAILY [facility] Last Admin: 09/17/16 09:13 Dose: Not Given Famotidine (Pepcid) 20 mg PO DAILY [facility] Last Admin: 09/17/16 09:13 Dose: Not Given Ampicillin Sodium/Sulbactam (Sodium 3 gm/ Sodium Chloride) 100 mls @ 100 mls/ hr IVPB Q6 [facility] Last Admin: 09/17/16 04:32 Dose: 100 mls/hr Levothyroxine Sodium (Synthroid) 75 mcg PO DAILY@0630 [facility] Last Admin: 09/17/16 05:46 Dose: Not Given Losartan Potassium (Cozaar) 50 mg PO DAILY [facility] Last Admin: 09/17/16 09:13 Dose: Not Given Morphine Sulfate (Morphine) 1 mg IVP Q4 PRN PRN Reason: Pain, moderate (4-7) Last Admin: 09/17/16 00:57 Dose: 1 mg Morphine Sulfate (Morphine) 2 mg IVP Q4 PRN PRN Reason: Pain, severe (8-10) Ondansetron HCl (Zofran Inj) 4 mg IVP Q4 PRN PRN Reason: Nausea/Vomiting Tamsulosin HCl (Flomax) 0.4 mg PO DAILY [facility] Last Admin: 09/17/16 09:13 Dose: Not Given - Labs Labs: 09/17/16 05:20 09/17/16 05:20 PT 10.5 Seconds (9.8-13.1) 09/15/16 01:33 INR 0.9 (0.9-1.2) 09/15/16 01:33 APTT 30.7 Seconds (25.6-37.1) 09/15/16 01:33 - Constitutional Appears: Non-toxic, No Acute Distress - Head Exam Head Exam: ATRAUMATIC, NORMAL INSPECTION, NORMOCEPHALIC - Eye Exam Eye Exam: EOMI, Normal appearance, PERRL Pupil Exam: NORMAL ACCOMODATION - ENT Exam ENT Exam: Mucous Membranes Moist, Normal Exam - Neck Exam Neck Exam: Full ROM, Normal Inspection - Respiratory Exam Respiratory Exam: Clear to Ausculation Bilateral, NORMAL BREATHING PATTERN. absent: Rales, Rhonchi, Wheezes - Cardiovascular Exam Cardiovascular Exam: REGULAR RHYTHM, RRR, +S1, +S2. absent: JVD - GI/Abdominal Exam GI & Abdominal Exam: Soft, Tenderness (suprapubic), Normal Bowel Sounds. absent : Distended, Guarding, Rebound - Rectal Exam Rectal Exam: Deferred - Extremities Exam Extremities Exam: Full ROM, Normal Capillary Refill, Normal Inspection. absent : Calf Tenderness, Pedal Edema - Back Exam Back Exam: NORMAL INSPECTION - Neurological Exam Neurological Exam: Alert, Awake, CN II-XII Intact, Normal Gait, Oriented x3 - Psychiatric Exam Psychiatric exam: Normal Affect, Normal Mood - Skin Skin Exam: Dry, Intact, Normal Color, Warm Assessment and Plan - Assessment and Plan (Free Text) Assessment: 61 years female with hx of DM II, HTN, Hypothyroidism comes to the ED referring sensation of crawling of ants on both lower extremities and the whole body. This was associated with nausea SOB and an epigastric pain radiating to the left chest, back and LLQ. Her blood pressure was found to be elevated at home and because of the this she came to the ED.Initially admitted to telemetry for chest pain to rule out ACS. Abd Us showed cholelithiasis and general surgery was consulted. CT abdomen showed right distal ureter 3 mm stone with mild hydronephrosis. Upon further questioning patient gives history of multiple renal stones in the past and left nephrectomy after a complicated procedure for renal colic . At present she is clinically improving . Urology consulted and planning for stent placement today since patient was not able to pass the stone 1. Chest Pain- ACS ruled out Serial troponins negative EKG showed no ST-T wave changes V/Q chest showed no PE ( elevated D-dimmer ) transferred to medical floor 2.Cholelithiasis without cholecystitis Abd Us and CT abdomen showed cholelithiasis Surgery consulted no surgical intervention necessary 3. Obstructing right Ureteral stone with mild hydronephrosis Patient has long history of recurrent renal stones Continue IVF, pain management, Flomax urology consulted and case discussed with Dr. Ashton Continue straining of urine for stone collection On Unasyn empirically Plan for stone removal today since patient was not able to pass the stone overnight 4. HTN better controlled Continue cozaar ( micardis not formulary ) 5. DM II controlled Lispro sliding scale with accuchecks hold Metformin for 48 hours since patient received IV contrast diabetic diet 6. Dyslipidemia uncontrolled Chol 258 TG 283 LDL 140 Start Atorvastatin 40 mg po daily 7. Hypothyroidism on Levothyroxin 8. Stress ulcer prophylaxis Pepcid 9. DVT Prophylaxis SCD
[2016-09-17] MEDS ORDERED: cefTRIAXone (Rocephin) 1 gm Inj ONE (11:04)
[2016-09-17] MEDS ORDERED: Propofol 10 mg/ml Inj (20 ML) ONE (11:37)
[2016-09-17] MEDS ORDERED: Midazolam 2 MG/2 ML VIAL ONE (11:37)
[2016-09-17] MEDS ORDERED: Lactated Ringer's 1,000 ML IV ONE (11:40)
--- NOTE | 2016-09-17 11:44 | RAD ---
HISTORY: distal ureteral stone COMPARISON: CT abdomen and pelvis from 09/15/2016 FINDINGS: Evaluation of abdominal organs is limited due to contrast material in the colon. There are no calcifications overlying the renal silhouette. The 3 mm right mid to distal ureteral calcification identified on CT scan is not distinctly identified on plain radiograph. BOWEL: Normal. No obstruction. No free air. BONES: Normal. OTHER FINDINGS: None. IMPRESSION: Contrast material in the colon limits evaluation of calcifications. The small 3 mm right ureteral calcification seen on CT examination is not distinctly identified on plain radiograph.
[2016-09-17] MEDS ORDERED: cefTRIAXone (Rocephin) 1 gm Inj IM ONE (11:50)
--- NOTE | 2016-09-17 11:59 | CP.PCM.DIS ---
Provider - Provider Date of Admission: 09/15/16 15:22 Attending physician: Osman Murphy Consults: Urology consult Time Spent in preparation of Discharge (in minutes): 20 Hospital Course - Lab Results Lab Results: Micro Results 09/15/16 17:26 Urine Urine Culture - Final No Growth (<1,000 CFU/ML) Most Recent Lab Values WBC 8.5 K/uL (4.8-10.8) 09/17/16 05:20 RBC 3.95 Mil/uL (3.80-5.20) 09/17/16 05:20 Hgb 12.2 g/dL (12.0-16.0) 09/17/16 05:20 Hct 35.9 % (34.0-47.0) 09/17/16 05:20 MCV 90.8 fl (81.0-99.0) 09/17/16 05:20 MCH 30.8 pg (27.0-31.0) 09/17/16 05:20 MCHC 33.9 g/dL (33.0-37.0) 09/17/16 05:20 RDW 13.3 % (11.5-14.5) 09/17/16 05:20 Plt Count 282 K/uL (130-400) 09/17/16 05:20 MPV 7.8 fl (7.2-11.7) 09/16/16 05:00 Neut % (Auto) 52.0 % (50.0-75.0) 09/16/16 05:00 Lymph % (Auto) 36.9 % (20.0-40.0) 09/16/16 05:00 [place] % (Auto) 8.4 % (0.0-10.0) 09/16/16 05:00 Eos % (Auto) 2.1 % (0.0-4.0) 09/16/16 05:00 Baso % (Auto) 0.6 % (0.0-2.0) 09/16/16 05:00 Neut # 4.1 K/uL (1.8-7.0) 09/16/16 05:00 Lymph # 2.9 K/uL (1.0-4.3) 09/16/16 05:00 [place] # 0.7 K/uL (0.0-0.8) 09/16/16 05:00 Eos # 0.2 K/uL (0.0-0.7) 09/16/16 05:00 Baso # 0.0 K/uL (0.0-0.2) 09/16/16 05:00 PT 10.5 Seconds (9.8-13.1) 09/15/16 01:33 INR 0.9 (0.9-1.2) 09/15/16 01:33 APTT 30.7 Seconds (25.6-37.1) 09/15/16 01:33 D-Dimer, Quantitative 276 ng/mlDDU (0-230) H 09/15/16 01:33 Sodium 144 mmol/l (132-148) 09/17/16 05:20 Potassium 4.0 MMOL/L (3.6-5.0) 09/17/16 05:20 Chloride 111 mmol/L (98-107) H 09/17/16 05:20 Carbon Dioxide 25 mmol/L (22-30) 09/17/16 05:20 Anion Gap 12 (10-20) 09/17/16 05:20 BUN 16 mg/dl (7-17) 09/17/16 05:20 Creatinine 0.9 mg/dL (0.7-1.2) 09/17/16 05:20 Est GFR ( Amer) > 60 09/17/16 05:20 Est GFR (Non-Af Amer) > 60 09/17/16 05:20 POC Glucose (mg/dL) 103 mg/dL (65-110) 09/17/16 10:20 Random Glucose 99 mg/dL (65-105) 09/17/16 05:20 Calcium 9.3 mg/dL (8.4-10.2) 09/17/16 05:20 Magnesium 1.7 MG/DL (1.6-2.3) 09/15/16 01:33 Total Bilirubin 0.6 mg/dl (0.2-1.3) 09/16/16 05:00 AST 37 U/L (14-36) H 09/16/16 05:00 ALT 38 U/L (9-52) 09/16/16 05:00 Alkaline Phosphatase 72 U/L (38-126) 09/16/16 05:00 Troponin I 0.0150 ng/mL (0.00-0.120) 09/15/16 16:15 NT-Pro-B Natriuret Pep 71.0 pg/ml (0-900) 09/15/16 01:33 Total Protein 7.2 G/DL (6.3-8.2) 09/16/16 05:00 Albumin 3.8 g/dL (3.5-5.0) 09/16/16 05:00 Globulin 3.4 gm/dL (2.2-3.9) 09/16/16 05:00 Albumin/Globulin Ratio 1.1 (1.0-2.1) 09/16/16 05:00 Triglycerides 283 mg/DL (0-149) H 09/15/16 08:10 Cholesterol 258 mg/dL (0-199) H 09/15/16 08:10 LDL Cholesterol Direct 140 mg/dL (0-129) H 09/15/16 08:10 HDL Cholesterol 44 MG/DL (30-70) 09/15/16 08:10 Lipase 226 U/L (23-300) 09/15/16 01:33 Urine Color Straw (YELLOW) 09/15/16 17:26 Urine Clarity Clear (Clear) 09/15/16 17:26 Urine pH 6.0 (5.0-8.0) 09/15/16 17:26 Ur Specific Excel 1.006 (1.003-1.030) 09/15/16 17:26 Urine Protein Negative mg/dL (NEGATIVE) 09/15/16 17:26 Urine Glucose (UA) Neg mg/dL (Normal) 09/15/16 17:26 Urine Ketones Negative mg/dL (NEGATIVE) 09/15/16 17:26 Urine Blood Moderate (NEGATIVE) 09/15/16 17:26 Urine Nitrate Negative (NEGATIVE) 09/15/16 17:26 Urine Bilirubin Negative (NEGATIVE) 09/15/16 17:26 Urine Urobilinogen 0.2-1.0 mg/dL (0.2-1.0) 09/15/16 17:26 Ur Leukocyte Esterase Neg Maribel/uL (Negative) 09/15/16 17:26 Urine RBC (Auto) 2 /hpf (0-3) 09/15/16 17:26 Urine Microscopic WBC < 1 /hpf (0-5) 09/15/16 17:26 Ur Squamous Epith Cells < 1 /hpf (0-5) 09/15/16 17:26 - Hospital Course Hospital Course: 61 years female with hx of DM II, HTN, Hypothyroidism comes to the ED referring sensation of crawling of ants on both lower extremities and the whole body. This was associated with nausea SOB and an epigastric pain radiating to the left chest, back and LLQ. Her blood pressure was found to be elevated at home and because of the this she came to the ED.Initially admitted to telemetry for chest pain to rule out ACS. Abd Us showed cholelithiasis and general surgery was consulted. CT abdomen showed right distal ureter 3 mm stone with mild hydronephrosis. Upon further questioning patient gives history of multiple renal stones in the past and left nephrectomy after a complicated procedure for renal colic . At present she is clinically improving . Urology consulted and she had cystoscopy this Am that showed no stone to distal ureter. patient cleared fpor discharge by urology and Cipro Po empirically and ultracet for pain Advise patient to follow up with [facility] Explained patient that ome hematuri acan be normal 1. Chest Pain- ACS ruled out Serial troponins negative EKG showed no ST-T wave changes V/Q chest showed no PE ( elevated D-dimmer ) transferred to medical floor 2.Cholelithiasis without cholecystitis Abd Us and CT abdomen showed cholelithiasis Surgery consulted no surgical intervention necessary 3. Obstructing right Ureteral stone with mild hydronephrosis Patient has long history of recurrent renal stones Continue IVF, pain management, Flomax urology consulted and case discussed with Dr. Ashton s/p cystoscopy that showed no stone in distal ureter. Most likely patient passed the stone cleared by urology for discharge on Cipro Po and Ultracet PRN received Unasyn empirically while in hospital 4. HTN better controlled Continue cozaar ( micardis not formulary ) 5. DM II controlled Lispro sliding scale with accuchecks held Metformin for 48 hours since patient received IV contrast diabetic diet can resume Metformin tomorrow 6. Dyslipidemia uncontrolled Chol 258 TG 283 LDL 140 Started Atorvastatin 40 mg po daily 7. Hypothyroidism on Levothyroxin 8. Stress ulcer prophylaxis Pepcid 9. DVT Prophylaxis SCD Discharge Exam - Head Exam Head Exam: ATRAUMATIC, NORMAL INSPECTION, NORMOCEPHALIC - Eye Exam Eye Exam: EOMI, Normal appearance, PERRL Pupil Exam: NORMAL ACCOMODATION - ENT Exam ENT Exam: Mucous Membranes Moist, Normal Exam - Neck Exam Neck exam: Full Rom, Normal Inspection - Respiratory Exam Respiratory Exam: Clear to PA & Lateral, NORMAL BREATHING PATTERN. absent: Rales, Rhonchi, Wheezes - Cardiovascular Exam Cardiovascular Exam: REGULAR RHYTHM, RRR, +S1, +S2. absent: JVD - GI/Abdominal Exam GI & Abdominal Exam: Normal Bowel Sounds, Soft. absent: Distended, Guarding, Rebound, Tenderness - Rectal Exam Rectal Exam: Deferred - Extremities Exam Extremities exam: normal capillary refill, normal inspection, pedal pulses present - Back Exam Back exam: NORMAL INSPECTION - Neurological Exam Neurological exam: Alert, CN II-XII Intact, Oriented x3, Reflexes Normal - Psychiatric Exam Psychiatric exam: Normal Affect, Normal Mood - Skin Skin Exam: Dry, Intact, Normal Color, Warm Discharge Plan - Discharge Medications Prescriptions: Ciprofloxacin HCl [Cipro] 500 mg PO BID #14 tab Tramadol HCl/Acetaminophen [Ultracet Tablet] 1 each PO Q8 #20 tablet - Follow Up Plan Condition: FAIR Disposition: HOME/ ROUTINE Patient education suggested?: Yes Instructions: Cystoscopy (DC), Ureteral Stones (DC) Referrals: [facility] [place] [Outside]
--- NOTE | 2016-09-17 12:33 | CP.PCM.PN ---
Subjective - Date & Time of Evaluation Date of Evaluation: 09/17/16 Time of Evaluation: 12:30 - Subjective Subjective: UROLOIGY pOST OP NOTE . CYSTO right ureteroscopy showing no residual stone in the area of the lower ureter where it was noted on ct scan. Pt will see some gross hematuria but should be OK for disch with Rx for cipro and ultracet for pain Objective - Vital Signs/Intake and Output Vital Signs (last 24 hours): Temp Pulse Resp BP Pulse Ox 98.0 F 80 18 146/87 97 09/17/16 07:32 09/17/16 09:00 09/17/16 07:32 09/17/16 09:13 09/17/16 07:32 Intake and Output: 09/17/16 09/17/16 06:59 18:59 Intake Total 200 Balance 200 - Medications Medications: Current Medications Acetaminophen (Tylenol 325mg Tab) 650 mg PO Q6 PRN PRN Reason: Headache Last Admin: 09/16/16 18:16 Dose: 650 mg Atorvastatin Calcium (Lipitor) 40 mg PO DAILY [facility] Last Admin: 09/17/16 09:13 Dose: Not Given Famotidine (Pepcid) 20 mg PO DAILY [facility] Last Admin: 09/17/16 09:13 Dose: Not Given Ampicillin Sodium/Sulbactam (Sodium 3 gm/ Sodium Chloride) 100 mls @ 100 mls/ hr IVPB Q6 [facility] Last Admin: 09/17/16 04:32 Dose: 100 mls/hr Levothyroxine Sodium (Synthroid) 75 mcg PO DAILY@0630 [facility] Last Admin: 09/17/16 05:46 Dose: Not Given Losartan Potassium (Cozaar) 50 mg PO DAILY [facility] Last Admin: 09/17/16 09:13 Dose: Not Given Morphine Sulfate (Morphine) 1 mg IVP Q4 PRN PRN Reason: Pain, moderate (4-7) Last Admin: 09/17/16 00:57 Dose: 1 mg Morphine Sulfate (Morphine) 2 mg IVP Q4 PRN PRN Reason: Pain, severe (8-10) Ondansetron HCl (Zofran Inj) 4 mg IVP Q4 PRN PRN Reason: Nausea/Vomiting Tamsulosin HCl (Flomax) 0.4 mg PO DAILY [facility] Last Admin: 09/17/16 09:13 Dose: Not Given - Labs Labs: 09/17/16 05:20 09/17/16 05:20 PT 10.5 Seconds (9.8-13.1) 09/15/16 01:33 INR 0.9 (0.9-1.2) 09/15/16 01:33 APTT 30.7 Seconds (25.6-37.1) 09/15/16 01:33
[2016-09-17] MEDS ORDERED: Lactated Ringer's 1,000 ML IV SCH (13:00)
[2016-09-17] MEDS ORDERED: HYDROmorphone 0.5 mg/0.5 ml ISec ONE (13:56)
[2016-09-17] MEDS ORDERED: HYDROmorphone 0.5 mg/0.5 ml ISec IVP PRN (14:00)
[2016-09-17 15:35] VITALS: RESP 20; TEMP 97.8
[2016-09-17 16:19] VITALS: BP 135/84; PULSE 59; O2SAT 97
--- NOTE | 2016-11-27 00:24 | OP ---
PROCEDURE DATE: 09/17/2016 PREOPERATIVE DIAGNOSIS: Right renal colic secondary to a right ureterovesical junction calculus. PROCEDURE PERFORMED: Cystoscopy with right ureteroscopy. DESCRIPTION OF PROCEDURE: The patient was placed in the operating room table in dorsal lithotomy position. The area of the groin was draped and prepped in sterile manner. The patient had presented preoperatively with acute right renal colic. She had a CT scan, which showed the presence of a right ureterovesical junction calculus. She had not passed it prior to the procedure accordingly to the patient, so I did a right ureteroscopy and in the right ureteroscopy, there was no evidence of any right lower ureterovesical junction calculus. I advanced the ureteroscope to the level of the renal pelvis on the right side and there was no evidence of residual stone. Once this determination was made, the instrumentation was removed. The patient was taken from the operating room in good condition. Beto Albert MD
== END 2016-09-17 17:55 | disposition home or self-care (01) | DRG 324 ==
LOC: H.ER 00:21 → H.ERHOLD 03:04 → H.TEL 03:59 → OBSVTOIN 15:22 → H.MEDSURG1 09-17 00:22
PROVIDERS: ADMIT Internal Medicine; ATTEND Internal Medicine
PROC: 0TJB8ZZ Inspection of Bladder, Via Natural or Artificial Opening Endoscopic (ICD-10-PCS; principal; 2016-09-17 11:00)
DX: N13.2 Hydronephrosis with renal and ureteral calculous obstruction (principal); K76.0 Fatty (change of) liver, not elsewhere classified; I10 Essential (primary) hypertension; K80.20 Calculus of gallbladder without cholecystitis without obstruction; E03.9 Hypothyroidism, unspecified; E11.9 Type 2 diabetes mellitus without complications; E78.5 Hyperlipidemia, unspecified; K57.90 Diverticulosis of intestine, part unspecified, without perforation or abscess without bleeding; K58.9 Irritable bowel syndrome, unspecified; Z87.442 Personal history of urinary calculi; Z90.5 Acquired absence of kidney; R79.1 Abnormal coagulation profile